=== PATIENT | male | born 1965 ===

== ENCOUNTER → 2021-09-14 | Outpatient (CLI) | payer MEDICAID ==
[~2021-09-14] MED LIST: GADOTERATE 0.5 MMOL/ML (CLARISCAN) 20 ML VIAL IV ONE
--- NOTE | 2021-09-14 12:05 | Diagnostic Imaging Report ---
EXAMINATION: Lumbar spine MRI with and without contrast, 09/14/2021. TECHNIQUE: Multiplanar, multisequence MRI of the lumbar spine was performed with and without contrast. INDICATION: Low back pain with radiculopathy. COMPARISONS: None. FINDINGS: There is normal height and alignment of the vertebral bodies. Tip of the conus is unremarkable in appearance and location. L1-L2: Unremarkable. L2-L3: There is bilateral facet and ligamentum flavum hypertrophy. There is no central stenosis. There is mild bilateral neural foraminal narrowing. L3-L4: There is disc desiccation with mild broad-based bulging disc material. There is bilateral facet hypertrophy. There is mild central narrowing. There is moderate bilateral neural foraminal stenosis. L4-L5: There is mild left paracentral broad-based bulging disc material. There is bilateral facet and ligamentum flavum hypertrophy. There is mild central stenosis with mild narrowing of the left lateral recess. There is moderate bilateral neural foraminal stenosis. L5-S1: There is disc desiccation with a right paracentral broad-based bulging disc. There is bilateral facet hypertrophy. There is mild central stenosis. There is moderate bilateral neural foraminal stenosis. The visualized intra-abdominal structures are unremarkable Postcontrast imaging demonstrates no abnormal enhancement. IMPRESSION: 1. Multilevel diffuse degenerative disease as described above. Dictated by: Dictated on workstation # [id number]
== END ==
LOC: RAD 10:15
PROVIDERS: ATTEND Pediatrics
DX: M47.27 Other spondylosis with radiculopathy, lumbosacral region (principal); M48.07 Spinal stenosis, lumbosacral region; M51.17 Intervertebral disc disorders with radiculopathy, lumbosacral region
CPT/HCPCS: 72158